=== PATIENT | male | born 1935 | race American Indian/Alaskan Native ===

== ENCOUNTER 2018-06-02 09:38 | Inpatient (IN) | payer MEDICARE ==
[2018-06-02 09:38] VITALS: BMI 27.4
--- NOTE | 2018-06-02 13:01 | C.PDOC ---
History Of Present Illness 82 years old male with PMHx of HTN and diabetes presents to ED for complaints of right lower leg pain that began few days ago. Patient states ability to walk is limited secondary to pain. Patient also reports he is not compliant with his medications. Patient states he has uncontrolled HTN and Diabetes which he cannot control with medication. Denies trauma, injuries, or any other complaints. Time Seen by Provider: 06/02/18 09:54 Chief Complaint (Nursing): Lower Extremity Problem/Injury History Per: Patient History/Exam Limitations: no limitations Onset/Duration Of Symptoms: Hrs Current Symptoms Are (Timing): Still Present Recent travel outside of the [place]: No Past Medical History Reviewed: Historical Data, Nursing Documentation, Vital Signs Vital Signs: Last Vital Signs Temp 97.9 F 06/02/18 09:44 Pulse 81 06/02/18 10:42 Resp 18 06/02/18 10:42 BP 205/68 H 06/02/18 10:42 Pulse Ox 100 06/02/18 10:42 - Medical History PMH: CVA, Diabetes, HTN, Hypercholesterolemia Surgical History: No Surg Hx Family History: States: Unknown Family Hx - Social History Hx Tobacco Use: No Hx Alcohol Use: Yes Hx Substance Use: No - Immunization History Hx Tetanus Toxoid Vaccination: No Hx Influenza Vaccination: No Hx Pneumococcal Vaccination: No Review Of Systems Constitutional: Negative for: Fever, Chills Gastrointestinal: Negative for: Nausea, Vomiting, Abdominal Pain, Diarrhea Musculoskeletal: Positive for: Leg Pain Skin: Negative for: Rash Neurological: Negative for: Weakness, Numbness Physical Exam - Physical Exam Appears: Well, Non-toxic, No Acute Distress Skin: Normal Color, Warm, Dry, No Rash Head: Atraumatic, Normacephalic Eye(s): bilateral: Normal Inspection, PERRL, EOMI Oral Mucosa: Moist Neck: Normal ROM, Supple Chest: Symmetrical, No Tenderness Cardiovascular: Rhythm Regular, No Murmur Respiratory: Normal Breath Sounds, No Rales, No Rhonchi, No Wheezing Gastrointestinal/Abdominal: Soft, No Tenderness Extremity: Normal ROM, No Tenderness (Leg ), Calf Tenderness, No Swelling (No leg swelling ) Extremity: Bilateral: Atraumatic, Normal Color And Temperature, Normal ROM Pulses: Left Dorsalis Pedis: Normal, Right Dorsalis Pedis: Normal Neurological/Psych: Oriented x3, Normal Speech Gait: Steady ED Course And Treatment O2 Sat by Pulse Oximetry: 100 (RA) Pulse Ox Interpretation: Normal Progress Note: Ordered Venous duplex scan. Dr. Escobedo came at bedside and accepted patient to telemtry. Disposition - Disposition Disposition: HOSPITALIZED Disposition Time: 13:50 Condition: FAIR - Clinical Impression Clinical Impression: Leg pain, Uncontrolled hypertension, Uncontrolled diabetes mellitus - PA / APPEALS EXAMINER / Resident Statement MD/DO has reviewed & agrees with the documentation as recorded. - Scribe Statement The provider has reviewed the documentation as recorded by the Scribben Ty All medical record entries made by the Andreibben were at my direction and personal ly dictated by me. I have reviewed the chart and agree that the record accurately reflects my personal performance of the history, physical exam, medical decision making, and the department course for this patient. I have also personally directed, reviewed, and agree with the discharge instructions and disposition. Decision To Admit - Pt Status Changed To: Hospital Disposition Of: Inpatient - Admit Certification Admit to Inpatient:: After my assessment, the patient will require hospitalization for at least two midnights. This is because of the severity of symptoms shown, intensity of services needed, and/or the medical risk in this patient being treated as an outpatient. - InPatient: Physician Admission Certification: I certify that this patient requires 2 or more midnights of care for the following reason:: will need more than 2 days of hospitalization - . Bed Request Type: Telemetry Patient Diagnosis: Leg pain, Uncontrolled hypertension, Uncontrolled diabetes mellitus
[2018-06-02] MEDS ORDERED: (Lantus) Insulin Glargine, Recombinant SC ONE (13:38)
[2018-06-02 14:48] LABS: BASO % 0.5 % (0.0-2.0); EOS # 0.1 K/uL (0.0-0.7); EOS % 1.2 % (0.0-4.0); HEMOGLOBIN 12.4 g/dL (12.0-18.0); LYMPH # 1.2 K/uL (1.0-4.3); LYMPH % 17.3 % (20.0-40.0); MEAN CELL VOLUME 91.4 fL (80.0-94.0); MEAN CORPUSCULAR HEMOGLOBIN 30.7 pg (27.0-31.0); MEAN CORPUSCULAR HGB CONC 33.5 g/dL (33.0-37.0); MEAN PLATELET VOLUME 9.4 fL (7.2-11.7); MONO # 0.6 K/uL (0.0-0.8); MONO % 7.9 % (0.0-10.0); NEUT # 5.1 K/uL (1.8-7.0); NEUT % 73.1 % (50.0-75.0); NRBC % 0.2 % (0.0-2.0); RBC 4.06 Mil/uL (4.40-5.90); RED CELL DISTRIBUTION WIDTH 15.1 % (11.5-14.5)
[2018-06-02 15:23] LABS: ALB/GLOB RATIO 1.1 (1.0-2.1); ALBUMIN 4.2 g/dL (3.5-5.0)
--- NOTE | 2018-06-02 15:27 | RAD ---
Date of service: 06/02/2018 HISTORY: htn COMPARISON: 07/08/2015 FINDINGS: LUNGS: No active pulmonary disease. PLEURA: No significant pleural effusion identified, no pneumothorax apparent. CARDIOVASCULAR: No aortic atherosclerotic calcification present. Normal cardiac size. No pulmonary vascular congestion. OSSEOUS STRUCTURES: No significant abnormalities. VISUALIZED UPPER ABDOMEN: Normal. OTHER FINDINGS: None. IMPRESSION: No active disease.
[2018-06-02] MEDS ORDERED: Glucagon Recombinant 1 mg Inj IM PRN (16:34)
[2018-06-02] MEDS ORDERED: Dextrose 50% SYRINGE Inj (50 ml) IV PRN (16:34)
--- NOTE | 2018-06-03 01:35 | HP ---
HISTORY OF PRESENT ILLNESS: This is an 82-year-old gentleman, came to the ER with weakness of the right lower extremity and pain and swelling in the right lower leg, started about two days ago, unable to walk. The patient has a longstanding history of hypertension, diabetes, carotid disease. He has been on multiple medications that includes at home Norvasc 10 mg one a day, benazepril 40 mg p.o. once a day, Coreg 25 mg p.o. twice a day, Plavix 75 mg one a day, baby aspirin one a day, Januvia 25 mg p.o. once a day, Levemir 50 units once a day, and Zocor 40 mg p.o. once a day. He was also on . The patient has been advised to follow up with debone processing supervisor, twisting frame changer, eye doctor; however, compliance has been poor. Care of plan was explained to the patient's son, . PAST MEDICAL HISTORY: History of TIAs, admitted in 2014 at [facility]. PAST SURGICAL HISTORY: No surgical history. PERSONAL HISTORY: Does not smoke. Does not drink. No exercise. Lives with his , . FAMILY HISTORY: Negative for premature coronary artery disease. REVIEW OF SYSTEMS: CONSTITUTIONAL: Generalized weakness is noted, but no fever and no chills. EYES: Negative for visual disturbances. Has been seen by Dr. Pickering in the past but, however, no followup. EARS: Negative for hearing loss. NECK: Negative for swollen glands. PULMONARY: Negative for cough or hemoptysis. CARDIAC: Dyspnea on exertion. No chest pains. No palpitations. No orthopnea. No edema. GASTROINTESTINAL: Negative for hematemesis or melena. Has been referred to GI, but is not done colonoscopy to my recollection. NEUROLOGIC: Denies any headaches or dizziness. Generalized weakness is noted. Unsteady gait at times. MUSCULOSKELETAL: History of joint pains, both on knees and hips. Echocardiogram done in the past had shown normal LV systolic function. PHYSICAL EXAMINATION: GENERAL: Shows elderly gentleman, in no acute distress. VITAL SIGNS: Blood pressure is 230/80, heart rate of 80, respiratory rate of 14, and temperature of 97.8. He is 5 feet 4 inches, and weight is 170 pounds. HEENT: Head is normocephalic. Eyes: No pallor, no icterus. Mouth: No exudates. Dentures are noted. PULMONARY: Clear to auscultation over the lung bases. CARDIAC: PMI is normal. S1 and S2 are normal. Permanent definite gallop. Systolic ejection murmur grade 2/6 in the mitral and aortic area. ABDOMEN: Slightly distended, but nontender. NEUROLOGIC: Awake, alert, and oriented x3. Moves all four extremities. MUSCULOSKELETAL: No edema. 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 Distal pulses are intact. LABORATORY DATA: EKGs and x-rays are not available. Venous Doppler was negative. ASSESSMENT: An 82-year-old gentleman with history of uncontrolled hypertension, previous transient ischemic attacks, is presented with generalized weakness more so on the right lower extremity with pain. No calf tenderness. Negative for deep vein thrombosis. PLAN: The plan is to admit to telemetry. Control his blood pressure. We will absorb the sugar and watch neurologically. Care of plan was explained to the patient's who is at the bedside. Rayo Escobedo MD
[2018-06-03] MEDS: (Novolog) Insulin Aspart, Recombinant 100 u/ml 10 ml vial SC SCH ×4 (07:57→21:15)
--- NOTE | 2018-06-03 11:55 | CP.PCM.PN ---
Subjective - Date & Time of Evaluation Date of Evaluation: 06/03/18 Time of Evaluation: 11:54 - Subjective Subjective: weak..labs noted.needs phy therapy Objective - Vital Signs/Intake and Output Vital Signs (last 24 hours): Temp Pulse Resp BP Pulse Ox 97.9 F 62 20 219/89 H 99 06/03/18 07:00 06/03/18 07:00 06/03/18 07:00 06/03/18 08:05 06/03/18 07:00 Intake and Output: 06/03/18 06/03/18 06:59 18:59 Intake Total 210 Output Total 350 Balance -140 - Medications Medications: Current Medications Amlodipine Besylate (Norvasc) 10 mg PO DAILY [facility] Last Admin: 06/03/18 09:23 Dose: 10 mg Aspirin (Aspirin Chewable) 81 mg PO DAILY [facility] Last Admin: 06/03/18 09:22 Dose: 81 mg Carvedilol (Coreg) 25 mg PO BID [facility] Last Admin: 06/03/18 09:25 Dose: Not Given Clopidogrel Bisulfate (Plavix) 75 mg PO DAILY [facility] Last Admin: 06/03/18 09:22 Dose: 75 mg Dextrose (Dextrose 50% Inj) 0 ml IV STAT PRN; Protocol PRN Reason: Hypoglycemia Protocol Dextrose (Glutose 15) 0 gm PO ONCE PRN; Protocol PRN Reason: Hypoglycemia Protocol Enalapril Maleate (Vasotec) 20 mg PO Q12 [facility] Last Admin: 06/03/18 09:25 Dose: Not Given Glucagon (Glucagen Diagnostic Kit) 0 mg IM STAT PRN; Protocol PRN Reason: Hypoglycemia Protocol Heparin Sodium (Porcine) (Heparin) 5,000 units SC BID [facility] Last Admin: 06/03/18 09:22 Dose: 5,000 units Hydralazine HCl (Apresoline) 25 mg PO TID [facility] Dextrose (Dextrose 5% In Water 1000 Ml) 1,000 mls @ 0 mls/hr IV .Q0M PRN; Protocol PRN Reason: Hypoglycemia Protocol Insulin Aspart (Novolog) 0 unit SC ACHS [facility]; Protocol Last Admin: 06/03/18 07:57 Dose: Not Given Rosuvastatin Calcium (Crestor) 10 mg PO HS [facility] - Labs Labs: 06/02/18 13:52 06/02/18 15:10 - Constitutional Appears: No Acute Distress, Chronically Ill - Head Exam Head Exam: NORMOCEPHALIC - Eye Exam Eye Exam: Normal appearance - Neck Exam Neck Exam: Normal Inspection - Respiratory Exam Respiratory Exam: Clear to Ausculation Bilateral - Cardiovascular Exam Cardiovascular Exam: REGULAR RHYTHM - GI/Abdominal Exam GI & Abdominal Exam: Soft - Extremities Exam Extremities Exam: absent: Pedal Edema - Neurological Exam Neurological Exam: Alert, Oriented x3 Assessment and Plan - Assessment and Plan (Free Text) Plan: uncontrol bp.dm,neuropathy?
--- NOTE | 2018-06-03 12:58 | VASCLAB ---
Date of service: 06/02/2018 PROCEDURE: Right Lower Extremity Venous Duplex Exam. HISTORY: pain PRIORS: None. TECHNIQUE: Right common femoral, femoral, popliteal and posterior tibial, peroneal and great saphenous veins were evaluated. Flow was assessed with color Doppler, compressibility, assessment of phasic flow and augmentation response. Report prepared by BRADEN Samson, RVT FINDINGS: RIGHT: 1. Common Femoral Vein: 1.1. Compressibility - Fully compressible: Thrombus - None: Flow - Phasic: Augmentation -Normal: Reflux - None. 2. Femoral Vein: 2.1. Compressibility - Fully compressible: Thrombus - None: Flow - Phasic: Augmentation -Normal: Reflux - None. 3. Popliteal Vein: 3.1. Compressibility - Fully compressible: Thrombus - None: Flow - Phasic: Augmentation -Normal: Reflux - None. 4. Posterior Tibial Vein: 4.1. Compressibility - Fully compressible: Thrombus - None: Flow - Phasic: Augmentation -Normal: Reflux - None. 5. Peroneal Vein: 5.1. Compressibility - Fully compressible: Thrombus - None: Flow - Phasic: Augmentation -Normal: Reflux - None. 6. Great Saphenous Vein: 6.1. Compressibility - Fully compressible: Thrombus -None: Flow - Phasic: Augmentation - Normal: Reflux - None. OTHER FINDINGS: IMPRESSION: No evidence of deep or superficial vein thrombosis of the right lower extremity with excellent venous flow. Normal valve function noted of the right side. Normal venous flow noted in the left common femoral vein.
[2018-06-03 13:01] LABS: CALCIUM 8.8 mg/dl (8.6-10.4)
--- NOTE | 2018-06-03 18:14 | CP.PCM.CON ---
History of Present Illness - History of Present Illness History of Present Illness: pt is seen and examined, full consult is dictated #[id number] Past Patient History - Past Medical History & Family History Past Medical History?: Yes - Past Social History Smoking Status: Former Smoker - CARDIAC Hx Cardiac Disorders: Yes Hx Hypercholesterolemia: Yes Hx Hypertension: Yes - PULMONARY Hx Respiratory Disorders: No - NEUROLOGICAL Hx Neurological Disorder: Yes HX Cerebrovascular Accident: Yes (2008 w/ residual right facial droop) - HEENT Hx HEENT Problems: Yes Hx Cataracts: Yes (SX removed) - RENAL Hx Chronic Kidney Disease: No - ENDOCRINE/METABOLIC Hx Endocrine Disorders: Yes Hx Diabetes Mellitus Type 2: Yes - HEMATOLOGICAL/ONCOLOGICAL Hx Blood Disorders: No - INTEGUMENTARY Hx Dermatological Problems: No - MUSCULOSKELETAL/RHEUMATOLOGICAL Hx Musculoskeletal Disorders: No Hx Falls: No - GASTROINTESTINAL Hx Gastrointestinal Disorders: No - GENITOURINARY/GYNECOLOGICAL Hx Genitourinary Disorders: Yes Hx Prostate Problems: Yes ("had surgery" but not sure) - PSYCHIATRIC Hx Psychophysiologic Disorder: No Hx Substance Use: No - SURGICAL HISTORY Hx Surgeries: Yes Hx Cataract Extraction: Yes Other/Comment: Prostate - ANESTHESIA Hx Anesthesia: Yes Hx Anesthesia Reactions: No Hx Malignant Hyperthermia: No Meds Allergies/Adverse Reactions: Allergies Allergy/AdvReac Type Severity Reaction Status Date / Time No Known Allergies Allergy Verified 06/02/18 09:47 - Medications Medications: Current Medications Amlodipine Besylate (Norvasc) 10 mg PO DAILY [facility] Last Admin: 06/03/18 09:23 Dose: 10 mg Aspirin (Aspirin Chewable) 81 mg PO DAILY [facility] Last Admin: 06/03/18 09:22 Dose: 81 mg Carvedilol (Coreg) 25 mg PO BID [facility] Last Admin: 06/03/18 17:14 Dose: 25 mg Clopidogrel Bisulfate (Plavix) 75 mg PO DAILY [facility] Last Admin: 06/03/18 09:22 Dose: 75 mg Dextrose (Dextrose 50% Inj) 0 ml IV STAT PRN; Protocol PRN Reason: Hypoglycemia Protocol Dextrose (Glutose 15) 0 gm PO ONCE PRN; Protocol PRN Reason: Hypoglycemia Protocol Enalapril Maleate (Vasotec) 20 mg PO Q12 [facility] Last Admin: 06/03/18 09:25 Dose: Not Given Glucagon (Glucagen Diagnostic Kit) 0 mg IM STAT PRN; Protocol PRN Reason: Hypoglycemia Protocol Heparin Sodium (Porcine) (Heparin) 5,000 units SC BID [facility] Last Admin: 06/03/18 17:24 Dose: 5,000 units Hydralazine HCl (Apresoline) 25 mg PO TID [facility] Last Admin: 06/03/18 17:24 Dose: 25 mg Dextrose (Dextrose 5% In Water 1000 Ml) 1,000 mls @ 0 mls/hr IV .Q0M PRN; Protocol PRN Reason: Hypoglycemia Protocol Insulin Aspart (Novolog) 0 unit SC ACHS [facility]; Protocol Last Admin: 06/03/18 16:30 Dose: Not Given Rosuvastatin Calcium (Crestor) 10 mg PO HS [facility] Results - Vital Signs Recent Vital Signs: Last Vital Signs Temp 97.1 F L 06/03/18 15:48 Pulse 60 06/03/18 15:48 Resp 20 06/03/18 15:48 BP 185/84 H 06/03/18 17:14 Pulse Ox 99 06/03/18 15:48 - Labs Result Diagrams: 06/02/18 13:52 06/03/18 11:17 Labs: Laboratory Results - last 24 hr 06/02/18 06/02/18 06/03/18 17:00 21:48 06:09 Sodium Potassium Chloride Carbon Dioxide Anion Gap BUN Creatinine Est GFR ( Amer) Est GFR (Non-Af Amer) POC Glucose (mg/dL) 224 H 116 H Random Glucose Calcium Urine Microalbumin > 570.0 H 06/03/18 06/03/18 06/03/18 11:17 12:24 16:23 Sodium 139 Potassium 4.4 Chloride 108 H Carbon Dioxide 24 Anion Gap 11 BUN 31 H Creatinine 1.4 Est GFR ( Amer) 58 Est GFR (Non-Af Amer) 48 POC Glucose (mg/dL) 346 H 88 Random Glucose 217 H D Calcium 8.8 Urine Microalbumin
--- NOTE | 2018-06-03 23:18 | CARD ---
APPROVED REPORT Date of service: 06/02/2018 EKG Measurement Heart [id number] <Conclusion> Normal sinus rhythm Left ventricular hypertrophy with repolarization abnormality Abnormal ECG
--- NOTE | 2018-06-04 06:14 | CON ---
DATE: 06/03/2018 RENAL CONSULTATION LOCATION: The patient is located in room 653, bed B. REQUESTED BY: Rayo Escobedo MD REASON FOR EVALUATION: Proteinuria, uncontrolled hypertension, increased BUN and creatinine. HISTORY OF PRESENT ILLNESS: Mr. Higgins is an 82-year-old elderly obese -[place] male with a past medical history significant for diabetes for about 20 years and hypertension for five to six years, who was admitted with chief complaint of pain in the right leg for one week and difficulty to ambulate. Denies any chest pain or palpitation. Denies any fever or cough. Denies any abdominal pain. Denies any nausea, vomiting, or diarrhea. Denies any urinary symptoms. Denies any swelling of the legs. Denies any trauma. PAST MEDICAL HISTORY: Significant for diabetes for more than 20 years, hypertension for five to six years, and hyperlipidemia. ALLERGIES: NO KNOWN DRUG ALLERGIES. SOCIAL HISTORY: The patient is an ex-smoker, quit about 10 years ago. Social alcohol use. No drug abuse. PERSONAL HISTORY: He is . He has six children. FAMILY HISTORY: Both parents . MEDICATIONS: His current medications include as follows: 1. Hydralazine 25 mg p.o. t.i.d. 2. Aspirin 81 mg p.o. daily. 3. Coreg 25 mg p.o. b.i.d. 4. Crestor 10 mg at bedtime. 5. Subcu heparin 5000 units b.i.d. 6. Amlodipine 10 mg daily. 7. NovoLog for sliding scale. 8. Plavix 75 mg daily. 9. Vasotec 20 mg p.o. every 12 hours. REVIEW OF SYSTEMS: Significant for pain in the right leg and uncontrolled hypertension. All other review of systems are reviewed and negative. PHYSICAL EXAMINATION: VITAL SIGNS: Blood pressure 185/84, pulse 60, respirations 20, temperature 97.1, saturation 99%. Height 5 feet 4 inches, weight is 180 pounds. GENERAL: Mr. Higgins is an 82-year-old elderly obese male, moderately built, moderately nourished, not in distress. HEENT: Pupils are normal and reactive to light and accommodation. Conjunctivae pink. Sclerae anicteric. Tongue is moist. NECK: Trachea is midline. LUNGS: Symmetric on both sides. Bilateral breath sounds present. Clear to auscultation. CARDIOVASCULAR SYSTEM: Glendo at the fifth intercostal space, midclavicular line. S1 and S2 audible. No murmur or gallop. ABDOMEN: Normal in appearance, soft, tympanitic. No guarding. No rigidity. No hepatosplenomegaly. No abdominal bruit. CENTRAL NERVOUS SYSTEM: The patient is alert, awake, oriented x3. Nonfocal neuro examination. Cranial nerves II through XII grossly intact. Sensory and motor system is within normal limits. EXTREMITIES: No cyanosis, no clubbing, no edema. Dorsalis pedis pulses are feeble. LABORATORY DATA: Include as follows: As of 06/03/2018, sodium 139, potassium 4.4, chloride 108, CO2 of 24, BUN 31, creatinine 1.4, glucose 217, calcium 8.8. Accu-Cheks are 116, 346, 88, and 208. GFR is 58 mL. Other laboratory data; urine microalbumin more than 750 mg/L. Chest x-ray as of 06/02/2018, no active disease. Duplex scan of the lower extremities, impression: No evidence of deep or superficial vein thrombosis of the right lower extremity, with excellent venous flow, normal wall function noted on the right side, normal venous flow noted in the left common femoral vein. ASSESSMENT: In summary, Mr. Higgins is an 82-year-old elderly male with a history of hypertension and diabetes, was admitted with right leg pain and difficult to ambulate and also found to have uncontrolled hypertension. 1. Uncontrolled hypertension, rule out renovascular disease. Continue his current medications Vasotec 20 mg every 12 hours, amlodipine 10 mg daily, Coreg 25 mg by mouth two times daily and hydralazine 25 mg by mouth three times daily. Consider to add Lasix 20 mg by mouth two times daily or hydrochlorothiazide 25 mg by mouth daily and also low-sodium diet. 2. Chronic kidney disease stage III, rule out hypertensive nephrosclerosis versus diabetic nephropathy. 3. Proteinuria, rule out diabetes mellitus nephropathy versus hypertensive nephrosclerosis versus chronic glomerulonephritis. 4. Type 2 diabetes. 5. Obesity. PLAN: We will check hepatitis B and C serology, LAVERNE, C3, C4 and ultrasound of the kidneys and urinalysis. Also, we will check urine protein to creatinine ratio. We will also check PTH intact level. We will follow with you. Thank you for allowing me to participate in your patient's care. Rosey Squires MD
[2018-06-04 07:41] LABS: SQUAMOUS EPITHIAL < 1 /hpf (0-5); URINE BILIRUBIN NEGATIVE (NEGATIVE); URINE BLOOD NEGATIVE (NEGATIVE); URINE CLARITY Clear (Clear); URINE COLOR Straw (YELLOW); URINE GLUCOSE (UA) NORMAL (Normal); URINE LEUKOCYTE ESTERASE NEG Leu/uL (Negative); URINE PROTEIN 2+ mg/dL (NEGATIVE); URINE UROBILINOGEN NORMAL mg/dL (0.2-1.0)
[2018-06-04] MEDS: (Novolog) Insulin Aspart, Recombinant 100 u/ml 10 ml vial SC SCH (07:50)
[2018-06-04 07:52] LABS: HEPATITIS B SURFACE AG Negative (NEGATIVE)
[2018-06-04 07:58] LABS: HEPATITIS A IGM NEGATIVE (NEGATIVE); HEPATITIS B CORE AB NEGATIVE (NEGATIVE)
[2018-06-04 08:09] LABS: HEPATITIS C ANTIBODY NEGATIVE (NEGATIVE)
--- NOTE | 2018-06-04 10:04 | US ---
Date of service: 06/04/2018 HISTORY: uncontrol htn COMPARISON: None. TECHNIQUE: Grayscale imaging was performed. FINDINGS: LIVER: Measures 18.6 cm. There is diffuse increased echogenicity of the liver parenchyma with coarse echotexture. No mass. No intrahepatic bile duct dilatation. GALLBLADDER: Unremarkable. No gallstones. COMMON BILE DUCT: Measures 5.0 mm. No stones. No dilatation. PANCREAS: Obscured by bowel gas. RIGHT KIDNEY: Measures 9.6cm. There is diffuse increased echogenicity with cortical atrophy. No calculus, mass, or hydronephrosis. LEFT KIDNEY: Measures 9.1cm. There is diffuse increased echogenicity with cortical atrophy. No calculus, mass, or hydronephrosis. SPLEEN: Normal in size and contour. No mass. AORTA: No aneurysmal dilatation. IVC: Unremarkable. OTHER FINDINGS: None. IMPRESSION: Mild hepatomegaly. Diffuse increased echogenicity in the liver may reflect hepatic steatosis however parenchymal infectious/ inflammatory etiologies cannot be entirely excluded. Clinical and laboratory correlation is advised. Chronic renal parenchymal disease. No cholelithiasis or biliary dilatation.
--- NOTE | 2018-06-04 10:05 | US ---
Date of service: 06/04/2018 PROCEDURE: Ultrasound of the Kidneys HISTORY: ckd, htn,dm, proteinuria, for kidney size COMPARISON: None available. TECHNIQUE: Grayscale imaging was performed. FINDINGS: RIGHT KIDNEY: Measures: 9.6 cm. There is diffuse increased echogenicity with cortical atrophy. No stone, solid mass lesion or hydronephrosis visualized. LEFT KIDNEY: Measures: 9.1 cm. There is diffuse increased echogenicity with cortical atrophy. No stone, solid mass lesion or hydronephrosis visualized. OTHER FINDINGS: None. IMPRESSION: Chronic renal parenchymal disease.
--- NOTE | 2018-06-04 18:59 | CP.PCM.PN ---
Subjective - Date & Time of Evaluation Date of Evaluation: 06/04/18 Time of Evaluation: 18:59 - Subjective Subjective: pt is seen and examined, follow up consult is dictated #[id number] Objective - Vital Signs/Intake and Output Vital Signs (last 24 hours): Temp Pulse Resp BP Pulse Ox 97.9 F 69 18 163/72 H 100 06/04/18 07:00 06/04/18 15:40 06/04/18 07:00 06/04/18 17:52 06/04/18 18:26 Intake and Output: 06/04/18 06/04/18 06:59 18:59 Intake Total 350 200 Balance 350 200 - Medications Medications: Current Medications Amlodipine Besylate (Norvasc) 10 mg PO DAILY [facility] Last Admin: 06/04/18 10:04 Dose: 10 mg Aspirin (Aspirin Chewable) 81 mg PO DAILY [facility] Last Admin: 06/04/18 10:04 Dose: 81 mg Carvedilol (Coreg) 25 mg PO BID [facility] Last Admin: 06/04/18 17:52 Dose: 25 mg Clopidogrel Bisulfate (Plavix) 75 mg PO DAILY [facility] Last Admin: 06/04/18 10:04 Dose: 75 mg Dextrose (Dextrose 50% Inj) 0 ml IV STAT PRN; Protocol PRN Reason: Hypoglycemia Protocol Dextrose (Glutose 15) 0 gm PO ONCE PRN; Protocol PRN Reason: Hypoglycemia Protocol Enalapril Maleate (Vasotec) 20 mg PO Q12 [facility] Last Admin: 06/04/18 10:55 Dose: 20 mg Glipizide (Glucotrol) 10 mg PO ACB [facility] Last Admin: 06/04/18 17:54 Dose: 10 mg Glucagon (Glucagen Diagnostic Kit) 0 mg IM STAT PRN; Protocol PRN Reason: Hypoglycemia Protocol Heparin Sodium (Porcine) (Heparin) 5,000 units SC BID [facility] Last Admin: 06/04/18 17:52 Dose: 5,000 units Hydralazine HCl (Apresoline) 25 mg PO TID [facility] Last Admin: 06/04/18 17:52 Dose: 25 mg Dextrose (Dextrose 5% In Water 1000 Ml) 1,000 mls @ 0 mls/hr IV .Q0M PRN; Prot ocol PRN Reason: Hypoglycemia Protocol Rosuvastatin Calcium (Crestor) 10 mg PO HS [facility] Last Admin: 06/03/18 21:14 Dose: 10 mg - Labs Labs: 06/02/18 13:52 06/03/18 11:17
--- NOTE | 2018-06-04 19:21 | CP.PCM.PN ---
Subjective - Date & Time of Evaluation Date of Evaluation: 06/04/18 Time of Evaluation: 19:20 - Subjective Subjective: better,bp is down Objective - Vital Signs/Intake and Output Vital Signs (last 24 hours): Temp Pulse Resp BP Pulse Ox 97.9 F 69 18 163/72 H 100 06/04/18 07:00 06/04/18 15:40 06/04/18 07:00 06/04/18 17:52 06/04/18 18:26 Intake and Output: 06/04/18 06/05/18 18:59 06:59 Intake Total 200 Balance 200 - Medications Medications: Current Medications Amlodipine Besylate (Norvasc) 10 mg PO DAILY [facility] Last Admin: 06/04/18 10:04 Dose: 10 mg Aspirin (Aspirin Chewable) 81 mg PO DAILY [facility] Last Admin: 06/04/18 10:04 Dose: 81 mg Carvedilol (Coreg) 25 mg PO BID [facility] Last Admin: 06/04/18 17:52 Dose: 25 mg Clopidogrel Bisulfate (Plavix) 75 mg PO DAILY [facility] Last Admin: 06/04/18 10:04 Dose: 75 mg Dextrose (Dextrose 50% Inj) 0 ml IV STAT PRN; Protocol PRN Reason: Hypoglycemia Protocol Dextrose (Glutose 15) 0 gm PO ONCE PRN; Protocol PRN Reason: Hypoglycemia Protocol Enalapril Maleate (Vasotec) 20 mg PO Q12 [facility] Last Admin: 06/04/18 10:55 Dose: 20 mg Glipizide (Glucotrol) 10 mg PO ACB [facility] Last Admin: 06/04/18 17:54 Dose: 10 mg Glucagon (Glucagen Diagnostic Kit) 0 mg IM STAT PRN; Protocol PRN Reason: Hypoglycemia Protocol Heparin Sodium (Porcine) (Heparin) 5,000 units SC BID [facility] Last Admin: 06/04/18 17:52 Dose: 5,000 units Hydralazine HCl (Apresoline) 25 mg PO TID [facility] Last Admin: 06/04/18 17:52 Dose: 25 mg Hydrochlorothiazide (Hydrodiuril) 25 mg PO DAILY [facility] Dextrose (Dextrose 5% In Water 1000 Ml) 1,000 mls @ 0 mls/hr IV .Q0M PRN; Pr otocol PRN Reason: Hypoglycemia Protocol Rosuvastatin Calcium (Crestor) 10 mg PO HS [facility] Last Admin: 06/03/18 21:14 Dose: 10 mg - Labs Labs: 06/02/18 13:52 06/03/18 11:17 - Constitutional Appears: No Acute Distress - Head Exam Head Exam: NORMOCEPHALIC - Eye Exam Eye Exam: Normal appearance - Neck Exam Neck Exam: Normal Inspection - Respiratory Exam Respiratory Exam: Clear to Ausculation Bilateral - Cardiovascular Exam Cardiovascular Exam: REGULAR RHYTHM, Murmur - GI/Abdominal Exam GI & Abdominal Exam: Soft - Extremities Exam Extremities Exam: absent: Pedal Edema - Neurological Exam Neurological Exam: Alert, Oriented x3 Assessment and Plan - Assessment and Plan (Free Text) Plan: htn,dm,getting better.
--- NOTE | 2018-06-05 03:52 | PN ---
DATE: 06/04/2018 FOLLOWUP RENAL CONSULTATION LOCATION: The patient is located in room 653, bed B. REQUESTED BY: Rayo Escobedo MD REASON FOR FOLLOWUP: Chronic kidney disease, proteinuria, uncontrolled hypertension. SUBJECTIVE: Mr. Higgins is an 82-year-old elderly obese male with a history of longstanding hypertension, diabetes, hyperlipidemia who was admitted with chief complaints of pain in the right leg and difficult to ambulate. The patient has also uncontrolled hypertension, increased BUN and creatinine. The patient is feeling much better today, not in acute distress. Denies any headache or dizziness. Denies any chest pain or palpitation. Denies any fever or cough. No abdominal pain. No nausea, vomiting, or diarrhea. Denies any pain in the leg today. PHYSICAL EXAMINATION: VITAL SIGNS: As follows: Blood pressure 163/72, pulse 67, respiration 20, temperature 97.4, saturation 100%. Height 5 feet 4 inches. Weight is 180 pounds. BMI 30.9. GENERAL: Mr. Higgins is an 82-year-old elderly male, well built, well nourished, not in acute distress. HEENT: Pupils are normal and reactive to light and accommodation. Conjunctivae pink. Sclerae anicteric. Tongue is moist. Trachea is midline. LUNGS: Symmetric on both sides. Bilateral breath sounds present. Clear to auscultation. CARDIOVASCULAR SYSTEM: [place] at the fifth intercostal space, midclavicular line. S1 and S2 audible. No murmur. No gallop. ABDOMEN: Normal in appearance. Soft, tympanitic. No guarding. No rigidity. No hepatosplenomegaly. CENTRAL NERVOUS SYSTEM: The patient is alert, awake, oriented x3. Nonfocal neuro examination. Cranial nerves II through XII grossly intact. Sensory and motor system is within normal limits. EXTREMITIES: No cyanosis, no clubbing, no edema. LABORATORY DATA: Include as follows. Duplex scan of the lower extremities is negative for DVT. Chest x-ray is negative. Ultrasound of the kidneys as of 06/04/2018, right kidney 9.6 cm and there is a diffuse increased echogenicity with cortical atrophy, no stone, no solid mass or hydronephrosis. Left kidney 9.1 cm. There is a diffuse increased echogenicity with cortical atrophy. Abdominal ultrasound: Liver measures 18.6 cm. There is a diffuse increased echogenicity of the liver parenchyma with coarse echotexture, no masses, no intrahepatic bile duct dilatation. Gallbladder unremarkable. No gallstones. CBD measures 5 mm, no stone or dilatation. No chronic renal parenchymal disease. No cholelithiasis or biliary dilatation. Other laboratory data: Urinalysis: Straw color, clear, pH of 6, specific gravity 1.008, protein 2+, glucose negative, ketones negative, blood negative, nitrite negative, bilirubin negative, urobilinogen negative, leukocyte esterase is negative, wbc's 2, and rbc 1. Hepatitis A IgM antibody negative. Hepatitis B surface antibody negative. Core antibody is negative. Hepatitis C antibody is negative. Accu-Cheks: 172, 233 and 273. Hemoglobin A1c is 8.3 as of 06/02/2018. ASSESSMENT AND PLAN: In summary, Mr. Higgins is an 82-year-old elderly male with hypertension, diabetes, proteinuria, increased blood urea nitrogen and creatinine who was admitted with uncontrolled hypertension. 1. Renal failure, chronic kidney disease 3, most likely secondary to hypertensive nephrosclerosis, cannot rule out underlying diabetic nephropathy or combination. 2. Uncontrolled hypertension. Blood pressure is improving. Questionable compliance with medications. Continue his current medications of Vasotec 20 mg every 12 hours, amlodipine 10 mg p.o. daily, Coreg 25 mg by mouth b.i.d., and hydralazine 25 mg by mouth t.i.d. We will also continue his other current medications of aspirin, Crestor, and glipizide. We will add hydrochlorothiazide 25 mg by mouth daily to try to keep the blood pressure around 130 to 140 and also continue low-sodium diet, low cholesterol, and 2000-calorie ADA diet. All the serology workup is within normal limits. Thank you for allowing me to participate in your patient's care. Discussed with Dr. Rayo Escobedo in rounds. Rosey Squires MD
--- NOTE | 2018-06-05 13:59 | CP.PCM.PN ---
Subjective - Date & Time of Evaluation Date of Evaluation: 06/05/18 Time of Evaluation: 13:58 - Subjective Subjective: pt is seen and examined, follow up consult is dictated #[id number] Objective - Vital Signs/Intake and Output Vital Signs (last 24 hours): Temp Pulse Resp BP Pulse Ox 97.7 F 63 18 170/72 H 99 06/05/18 07:00 06/05/18 08:00 06/05/18 07:00 06/05/18 10:35 06/05/18 07:00 Intake and Output: 06/05/18 06/05/18 06:59 18:59 Intake Total 420 Balance 420 - Medications Medications: Current Medications Amlodipine Besylate (Norvasc) 10 mg PO DAILY [facility] Last Admin: 06/05/18 09:13 Dose: 10 mg Aspirin (Aspirin Chewable) 81 mg PO DAILY [facility] Last Admin: 06/05/18 09:13 Dose: 81 mg Carvedilol (Coreg) 25 mg PO BID [facility] Last Admin: 06/05/18 09:13 Dose: 25 mg Clopidogrel Bisulfate (Plavix) 75 mg PO DAILY [facility] Last Admin: 06/05/18 09:13 Dose: 75 mg Dextrose (Dextrose 50% Inj) 0 ml IV STAT PRN; Protocol PRN Reason: Hypoglycemia Protocol Dextrose (Glutose 15) 0 gm PO ONCE PRN; Protocol PRN Reason: Hypoglycemia Protocol Enalapril Maleate (Vasotec) 20 mg PO Q12 [facility] Last Admin: 06/05/18 10:35 Dose: 20 mg Glipizide (Glucotrol) 10 mg PO ACB [facility] Last Admin: 06/05/18 13:03 Dose: 10 mg Glucagon (Glucagen Diagnostic Kit) 0 mg IM STAT PRN; Protocol PRN Reason: Hypoglycemia Protocol Heparin Sodium (Porcine) (Heparin) 5,000 units SC BID [facility] Last Admin: 06/05/18 09:12 Dose: 5,000 units Hydralazine HCl (Apresoline) 25 mg PO TID [facility] Last Admin: 06/05/18 13:02 Dose: 25 mg Hydrochlorothiazide (Hydrodiuril) 25 mg PO DAILY [facility] Last Admin: 06/05/18 09:14 Dose: 25 mg Dextrose (Dextrose 5% In Water 1000 Ml) 1,000 mls @ 0 mls/hr IV .Q0M PRN; Protocol PRN Reason: Hypoglycemia Protocol Rosuvastatin Calcium (Crestor) 10 mg PO HS [facility] Last Admin: 06/04/18 20:59 Dose: 10 mg - Labs Labs: 06/02/18 13:52 06/03/18 11:17
--- NOTE | 2018-06-05 15:10 | CP.PCM.PN ---
Subjective - Date & Time of Evaluation Date of Evaluation: 06/05/18 Time of Evaluation: 15:09 - Subjective Subjective: weak.bp still high/ Objective - Vital Signs/Intake and Output Vital Signs (last 24 hours): Temp Pulse Resp BP Pulse Ox 97.7 F 63 18 170/72 H 99 06/05/18 07:00 06/05/18 08:00 06/05/18 07:00 06/05/18 10:35 06/05/18 07:00 Intake and Output: 06/05/18 06/05/18 06:59 18:59 Intake Total 420 Balance 420 - Medications Medications: Current Medications Amlodipine Besylate (Norvasc) 10 mg PO DAILY [facility] Last Admin: 06/05/18 09:13 Dose: 10 mg Aspirin (Aspirin Chewable) 81 mg PO DAILY [facility] Last Admin: 06/05/18 09:13 Dose: 81 mg Carvedilol (Coreg) 25 mg PO BID [facility] Last Admin: 06/05/18 09:13 Dose: 25 mg Clopidogrel Bisulfate (Plavix) 75 mg PO DAILY [facility] Last Admin: 06/05/18 09:13 Dose: 75 mg Dextrose (Dextrose 50% Inj) 0 ml IV STAT PRN; Protocol PRN Reason: Hypoglycemia Protocol Dextrose (Glutose 15) 0 gm PO ONCE PRN; Protocol PRN Reason: Hypoglycemia Protocol Enalapril Maleate (Vasotec) 20 mg PO Q12 [facility] Last Admin: 06/05/18 10:35 Dose: 20 mg Glipizide (Glucotrol) 10 mg PO ACB [facility] Last Admin: 06/05/18 13:03 Dose: 10 mg Glucagon (Glucagen Diagnostic Kit) 0 mg IM STAT PRN; Protocol PRN Reason: Hypoglycemia Protocol Heparin Sodium (Porcine) (Heparin) 5,000 units SC BID [facility] Last Admin: 06/05/18 09:12 Dose: 5,000 units Hydralazine HCl (Apresoline) 50 mg PO TID [facility] Hydrochlorothiazide (Hydrodiuril) 25 mg PO DAILY [facility] Last Admin: 06/05/18 09:14 Dose: 25 mg Dextrose (Dextrose 5% In Water 1000 Ml) 1,000 mls @ 0 mls/hr IV .Q0M PRN; P rotocol PRN Reason: Hypoglycemia Protocol Rosuvastatin Calcium (Crestor) 10 mg PO HS [facility] Last Admin: 06/04/18 20:59 Dose: 10 mg - Labs Labs: 06/02/18 13:52 06/03/18 11:17 - Constitutional Appears: No Acute Distress, Chronically Ill - Head Exam Head Exam: NORMOCEPHALIC - Neck Exam Neck Exam: Normal Inspection - Respiratory Exam Respiratory Exam: Clear to Ausculation Bilateral - Cardiovascular Exam Cardiovascular Exam: REGULAR RHYTHM - GI/Abdominal Exam GI & Abdominal Exam: Soft - Extremities Exam Extremities Exam: absent: Pedal Edema - Neurological Exam Neurological Exam: Alert, Oriented x3 Assessment and Plan - Assessment and Plan (Free Text) Plan: uncontrolled dm,htn.increase hydralzine to 50 mg tid.
[2018-06-06 00:48] VITALS: RESP 20
--- NOTE | 2018-06-06 02:47 | PN ---
DATE: 06/05/2018 FOLLOWUP RENAL CONSULTATION LOCATION: The patient is located in room 653, bed B. REQUESTED BY: Rayo Escobedo MD REASON FOR FOLLOWUP: CKD III, uncontrolled hypertension, proteinuria. HISTORY OF PRESENT ILLNESS: Mr. Higgins is an 82-year-old elderly, male, obese with a past medical history significant for longstanding hypertension, diabetes, and hyperlipidemia, was admitted with the chief complaints of right leg pain, difficult to ambulate, and found to have a very high blood pressure, and also elevated serum creatinine. The patient is feeling much better, not in acute distress. Denies any headache or dizziness. Denies any chest pain or palpitation. Denies any fever or cough. No abdominal pain. No nausea, vomiting, or diarrhea, and no pain in the leg at this time. The patient is eager to go home. PHYSICAL EXAMINATION: CURRENT VITAL SIGNS: As follows, blood pressure 191/72, pulse 62, respirations about 18, and temperature is 98. Height 5 feet 4 inches, weight is 180 pounds. GENERAL: Mr. Higgins is an 82-year-old elderly male, moderately built, moderately nourished, not in distress. HEENT: Pupils normal, reactive to light and accommodation. Conjunctivae pink. Sclerae anicteric. Tongue is moist, and trachea is midline. LUNGS: Symmetric on both sides. Bilateral breath sounds present. Clear to auscultation. CARDIOVASCULAR SYSTEM: [place] at the fifth intercostal space and midclavicular line. S1, S2 audible. No murmur or gallop. ABDOMEN: Normal in appearance. Protuberant, soft, tympanic. No guarding. No rigidity. No hepatosplenomegaly. CENTRAL NERVOUS SYSTEM: The patient is alert, awake, and oriented x3. Nonfocal neuro examination. Cranial nerves II through XII grossly intact. Sensory and motor system is within normal limits. EXTREMITIES: No cyanosis, no clubbing, no edema. LABORATORY DATA: Include as follows: C3 is 126, C4 is 50, and AccuCheks 100, 212, 199, and 245. ASSESSMENT AND PLAN: In summary, Mr. Higgins is an 82-year-old elderly male with hypertension, diabetes, hyperlipidemia with chronic kidney disease, most likely with hypertension and nephrosclerosis. 1. Uncontrolled hypertension. Blood pressure is still running high. Continue current medications, enalapril 20 mg p.o. every 12 hours, amlodipine 10 mg p.o. daily, and started on hydrochlorothiazide 325 mg p.o. daily and continue, and Coreg 25 mg p.o. b.i.d., and continue hydralazine, we will increase to 50 mg p.o. every 8 hours. Low-sodium diet. If blood pressure does not control, we will add minoxidil 2.5 mg p.o. b.i.d. with hydrochlorothiazide. 2. Chronic kidney disease III, most likely secondary to hypertensive nephrosclerosis, doubt diabetic nephropathy in view of relatively small normal-sized kidneys. 3. Type 2 diabetes. 4. Hyperlipidemia. Continue Crestor. Continue glipizide 10 mg p.o. before meals b.i.d. We will follow with you. Thank you for allowing me to participate in your patient's care. Rosey Squires MD MTDD
--- NOTE | 2018-06-06 16:25 | CP.PCM.PN ---
Subjective - Date & Time of Evaluation Date of Evaluation: 06/06/18 Time of Evaluation: 16:25 - Subjective Subjective: pt is seen and examined, follow up consult is dictated #[id number] Objective - Vital Signs/Intake and Output Vital Signs (last 24 hours): Temp Pulse Resp BP Pulse Ox 97.9 F 78 20 177/72 H 98 06/06/18 07:00 06/06/18 16:00 06/06/18 07:00 06/06/18 10:07 06/06/18 07:00 Intake and Output: 06/06/18 06/06/18 06:59 18:59 Output Total 400 Balance -400 - Medications Medications: Current Medications Amlodipine Besylate (Norvasc) 10 mg PO DAILY [facility] Last Admin: 06/06/18 10:07 Dose: 10 mg Aspirin (Aspirin Chewable) 81 mg PO DAILY [facility] Last Admin: 06/06/18 10:07 Dose: 81 mg Carvedilol (Coreg) 25 mg PO BID [facility] Last Admin: 06/06/18 10:06 Dose: 25 mg Clopidogrel Bisulfate (Plavix) 75 mg PO DAILY [facility] Last Admin: 06/06/18 10:07 Dose: 75 mg Dextrose (Dextrose 50% Inj) 0 ml IV STAT PRN; Protocol PRN Reason: Hypoglycemia Protocol Dextrose (Glutose 15) 0 gm PO ONCE PRN; Protocol PRN Reason: Hypoglycemia Protocol Enalapril Maleate (Vasotec) 20 mg PO Q12 [facility] Last Admin: 06/06/18 10:07 Dose: 20 mg Glipizide (Glucotrol) 10 mg PO ACBD [facility] Last Admin: 06/06/18 07:42 Dose: 10 mg Glucagon (Glucagen Diagnostic Kit) 0 mg IM STAT PRN; Protocol PRN Reason: Hypoglycemia Protocol Heparin Sodium (Porcine) (Heparin) 5,000 units SC Q12H [facility] Last Admin: 06/06/18 10:07 Dose: 5,000 units Hydralazine HCl (Apresoline) 50 mg PO Q8H [facility] Last Admin: 06/06/18 14:00 Dose: 50 mg Hydrochlorothiazide (Hydrodiuril) 25 mg PO DAILY [facility] Last Admin: 06/06/18 10:07 Dose: 25 mg Rosuvastatin Calcium (Crestor) 10 mg PO HS [facility] Last Admin: 06/05/18 21:29 Dose: 10 mg - Labs Labs: 06/02/18 13:52 06/03/18 11:17
--- NOTE | 2018-06-07 01:20 | PN ---
DATE: 06/06/2018 FOLLOWUP RENAL CONSULTATION LOCATION: The patient is located in room 653, bed B. REQUESTED BY: Rayo Escobedo MD REASON FOR FOLLOWUP: Uncontrolled hypertension, CKD. HISTORY OF PRESENT ILLNESS: Mr. Higgins is an 82-year-old elderly male with longstanding hypertension, diabetes, chronic kidney disease who was admitted with chief complaints of right leg pain and difficult to ambulate and also very high blood pressure with elevated BUN and creatinine. The patient denies any complaints today. Denies any chest pain or palpitation. Denies any fever or cough. The patient is eager to go home, not in acute distress. PHYSICAL EXAMINATION: VITAL SIGNS: Blood pressure 184/69, pulse 60, respirations 20, temperature 97.8, saturation 100%. Height 5 feet 4 inches, weight is 153 pounds. GENERAL: Mr. Higgins is an [id number] male, moderately built, moderately nourished, not in acute distress. HEENT: Pupils are normal and reactive to light and accommodation. Conjunctivae pink. Sclerae anicteric. Tongue is moist. Trachea is midline. LUNGS: Symmetric on both sides. Bilateral breath sounds present. Clear to auscultation. CARDIOVASCULAR SYSTEM: [place] at the fifth intercostal space, midclavicular line. S1, S2 audible. No murmur or gallop. ABDOMEN: Protuberant, soft, tympanitic. No guarding. No rigidity. No hepatosplenomegaly. CENTRAL NERVOUS SYSTEM: The patient is alert, awake, and oriented x3. Nonfocal neuro examination. Cranial nerves II through XII grossly intact. Sensory and motor system is within normal limits. EXTREMITIES: No cyanosis, no clubbing, no edema. Decreased dorsalis pedis pulses in both lower extremities. CURRENT MEDICATIONS: Include as follows: Hydralazine 50 mg p.o. every 8 hours, aspirin 81 mg daily, Coreg 25 mg p.o. b.i.d., glipizide 10 mg p.o. a.c. b.i.d., subcu heparin 5000 units every 12 hours, hydrochlorothiazide 25 mg p.o. daily, amlodipine 10 mg daily, Plavix 75 mg p.o. daily, enalapril (Vasotec) 20 mg p.o. every 12 hours. LABORATORY DATA: No new labs are available. Accu-Cheks 156, 243, and 152. Duplex scan of the lower extremity as of 06/02/2018, no evidence of deep or superficial vein thrombosis on the right lower extremity, normal venous flow noted in the left common femoral vein. IMPRESSION: In summary, Mr. Higgins is an 82-year-old elderly male with hypertension and diabetes who was admitted with uncontrolled hypertension, increased blood urea nitrogen and creatinine. 1. Chronic kidney disease 3, most likely secondary to hypertensive nephrosclerosis, cannot rule out underlying diabetic nephropathy or combination. 2. Uncontrolled hypertension. Continue his current medications, hydralazine 50 mg every 8 hours, Coreg 25 mg p.o. b.i.d., Norvasc 10 mg daily, and also hydralazine 50 mg every 8 hours, hydrochlorothiazide 25 mg daily, Norvasc 10 mg daily, enalapril 20 mg p.o. every 12 hours, and low-sodium diet. 3. Type 2 diabetes. Continue glipizide. Sugars are under control. If blood pressure is below 170, the patient may be able to go home and follow up as an outpatient. If blood pressure is still not controlled, consider to add minoxidil 2.5 mg p.o. b.i.d. and titrate as needed and adjust other vasodilators Norvasc or hydralazine if minoxidil is added in the near future. Rosey Squires MD
--- NOTE | 2018-06-07 10:50 | CP.PCM.PN ---
Subjective - Date & Time of Evaluation Date of Evaluation: 06/07/18 Time of Evaluation: 10:49 - Subjective Subjective: pt is seen and examined, follow up consult is dictated #[id number] d/c hydralzine, hctz start lasix 20 mg po bid, minxidil 2.5 mg po bid Objective - Vital Signs/Intake and Output Vital Signs (last 24 hours): Temp Pulse Resp BP Pulse Ox 98.0 F 74 20 180/70 H 99 06/07/18 07:00 06/07/18 08:09 06/07/18 07:00 06/07/18 09:42 06/07/18 07:00 - Medications Medications: Current Medications Amlodipine Besylate (Norvasc) 10 mg PO DAILY [facility] Last Admin: 06/07/18 09:42 Dose: 10 mg Aspirin (Aspirin Chewable) 81 mg PO DAILY [facility] Last Admin: 06/07/18 09:42 Dose: 81 mg Carvedilol (Coreg) 25 mg PO BID [facility] Last Admin: 06/07/18 09:42 Dose: 25 mg Clopidogrel Bisulfate (Plavix) 75 mg PO DAILY [facility] Last Admin: 06/07/18 09:42 Dose: 75 mg Dextrose (Dextrose 50% Inj) 0 ml IV STAT PRN; Protocol PRN Reason: Hypoglycemia Protocol Dextrose (Glutose 15) 0 gm PO ONCE PRN; Protocol PRN Reason: Hypoglycemia Protocol Enalapril Maleate (Vasotec) 20 mg PO Q12 [facility] Last Admin: 06/07/18 09:42 Dose: 20 mg Furosemide (Lasix) 20 mg PO BID [facility] Glipizide (Glucotrol) 10 mg PO ACBD [facility] Last Admin: 06/07/18 09:42 Dose: 10 mg Glucagon (Glucagen Diagnostic Kit) 0 mg IM STAT PRN; Protocol PRN Reason: Hypoglycemia Protocol Heparin Sodium (Porcine) (Heparin) 5,000 units SC Q12H [facility] Last Admin: 06/07/18 09:42 Dose: 5,000 units Minoxidil (Minoxidil) 2.5 mg PO BID [facility] Rosuvastatin Calcium (Crestor) 10 mg PO HS [facility] Last Admin: 06/06/18 22:03 Dose: 10 mg - Labs Labs: 06/02/18 13:52 06/03/18 11:17
--- NOTE | 2018-06-07 13:35 | VASCLAB ---
Date of service: 06/04/2018 PROCEDURE: Ultrasonography renal arterial evaluation HISTORY: hypertension COMPARISON: None available. TECHNIQUE: Real-time ultrasonography evaluation of the renal arteries were performed. Comparison is made to the aorta. Report prepared by BRADEN Samson, RVT FINDINGS: AORTA: Patent. Peak systolic velocity 63 centimeters/second RIGHT RENAL ARTERY: Renal artery to aorta ratio: 4.1 * Proximal segment: Patent. Peak systolic velocity 258 centimeters/second * Mid segment: Patent. Peak systolic velocity 107 centimeters/second * Distal segment: Patent. Peak systolic velocity 104 centimeters/second Other findings: Right Kidney measures approximately 10.59 centimeters. LEFT RENAL ARTERY: Renal artery to aorta ratio: 1.7 * Proximal segment: Patent. Peak systolic velocity 102 centimeters/second * Mid segment: Patent. Peak systolic velocity 100 centimeters/second * Distal segment: Patent. Peak systolic velocity 96 centimeters/second Other findings: Left Kidney measures approximately 10.14 centimeters. 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 LEFT:No definite hemodynamically significant stenosis involving the renal arteries as visualized.
--- NOTE | 2018-06-07 14:02 | CP.PCM.PN ---
Subjective - Date & Time of Evaluation Date of Evaluation: 06/07/18 Time of Evaluation: 14:01 - Subjective Subjective: bp still uncontrolled.started on minoxidil.. Objective - Vital Signs/Intake and Output Vital Signs (last 24 hours): Temp Pulse Resp BP Pulse Ox 98.0 F 59 L 20 150/66 99 06/07/18 07:00 06/07/18 11:48 06/07/18 07:00 06/07/18 11:48 06/07/18 07:00 - Medications Medications: Current Medications Amlodipine Besylate (Norvasc) 10 mg PO DAILY [facility] Last Admin: 06/07/18 09:42 Dose: 10 mg Aspirin (Aspirin Chewable) 81 mg PO DAILY [facility] Last Admin: 06/07/18 09:42 Dose: 81 mg Carvedilol (Coreg) 25 mg PO BID [facility] Last Admin: 06/07/18 09:42 Dose: 25 mg Clopidogrel Bisulfate (Plavix) 75 mg PO DAILY [facility] Last Admin: 06/07/18 09:42 Dose: 75 mg Dextrose (Dextrose 50% Inj) 0 ml IV STAT PRN; Protocol PRN Reason: Hypoglycemia Protocol Dextrose (Glutose 15) 0 gm PO ONCE PRN; Protocol PRN Reason: Hypoglycemia Protocol Enalapril Maleate (Vasotec) 20 mg PO Q12 [facility] Last Admin: 06/07/18 09:42 Dose: 20 mg Furosemide (Lasix) 20 mg PO BID [facility] Glipizide (Glucotrol) 10 mg PO ACBD [facility] Last Admin: 06/07/18 09:42 Dose: 10 mg Glucagon (Glucagen Diagnostic Kit) 0 mg IM STAT PRN; Protocol PRN Reason: Hypoglycemia Protocol Heparin Sodium (Porcine) (Heparin) 5,000 units SC Q12H [facility] Last Admin: 06/07/18 09:42 Dose: 5,000 units Minoxidil (Minoxidil) 2.5 mg PO BID [facility] Last Admin: 06/07/18 11:45 Dose: 2.5 mg Rosuvastatin Calcium (Crestor) 10 mg PO HS [facility] Last Admin: 06/06/18 22:03 Dose: 10 mg - Labs Labs: 06/02/18 13:52 06/03/18 11:17 - Constitutional Appears: No Acute Distress - Eye Exam Eye Exam: Normal appearance - Neck Exam Neck Exam: Normal Inspection - Respiratory Exam Respiratory Exam: Clear to Ausculation Bilateral - Cardiovascular Exam Cardiovascular Exam: REGULAR RHYTHM - GI/Abdominal Exam GI & Abdominal Exam: Soft - Extremities Exam Extremities Exam: absent: Pedal Edema - Neurological Exam Neurological Exam: Oriented x3 Assessment and Plan - Assessment and Plan (Free Text) Plan: diss with nephro.will observe today with new meds.
--- NOTE | 2018-06-08 03:34 | PN ---
DATE: 06/07/2018 FOLLOWUP RENAL CONSULTATION LOCATION: The patient is located in room 653, bed B. REQUESTED BY: Rayo Escobedo MD SUBJECTIVE: Mr. Hgigins is an 82-year-old elderly male with a past medical history significant for longstanding hypertension, diabetes, chronic kidney disease who was admitted with chief complaints of right leg pain and difficult to ambulate and found to have uncontrolled hypertension and elevated BUN and creatinine. The patient is feeling much better, not in acute distress. The patient is eager to go home but still blood pressure is more than 180. Denies any headache or dizziness. Denies any chest pain or palpitation. Denies any fever or cough. No abdominal pain. No nausea, vomiting, or diarrhea. PHYSICAL EXAMINATION: VITAL SIGNS: This morning, blood pressure 180/70, pulse 59, respirations about 20, temperature 98, and saturation 99%. Height 5 feet 4 inches. Weight is 153 pounds. GENERAL: Mr. Higgins is an 82-year-old elderly male, moderately built, moderately nourished, not in acute distress. HEENT: Pupils are normal and reactive to light and accommodation. Conjunctivae pink. Sclerae anicteric. Tongue is moist and trachea is midline. LUNGS: Symmetric on both sides. Bilateral breath sounds present. Clear to auscultation. CARDIOVASCULAR SYSTEM: [place] at the fifth intercostal space, midclavicular line. S1 and S2 audile. No murmur or gallop. ABDOMEN: Normal in appearance, soft, tympanitic. No guarding. No rigidity. No hepatosplenomegaly. CENTRAL NERVOUS SYSTEM: The patient is alert, awake and oriented x3. Nonfocal neuro examination. Cranial nerves II through XII grossly intact. Sensory and motor system is grossly within normal limits. EXTREMITIES: No cyanosis, no clubbing, no edema. IMAGING DATA: Renal scan: Right kidney measures 10.59 cm and left kidney measures 10.14 cm. 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 Right renal artery proximal segment peak velocity is 258 cm, and left renal artery proximal segment peak systolic velocity is 102. ASSESSMENT AND PLAN: In summary, Mr. Higgins is an 82-year-old elderly male with hypertension, diabetes, chronic kidney disease with uncontrolled hypertension. 1. Hypertension. Blood pressure is still high. We will discontinue hydralazine, and we will discontinue hydrochlorothiazide. We will start him on minoxidil 2.5 mg by mouth twice a day and hold for systolic blood pressure less than 130 and continue Norvasc and also continue Coreg 25 mg by mouth twice a day and continue enalapril 20 mg by mouth every 12 hours. 2. Type 2 diabetes. Continue glipizide 10 mg by mouth daily. 3. Hyperlipidemia. Continue Crestor 10 mg by mouth at bedtime. Continue aspirin and Plavix and continue subcutaneous heparin 5000 units every 12 hours. Case discussed with Dr. Rayo Escobedo. We will monitor blood pressure today and if is hemodynamically stable, we will plan for discharge in the morning. Agree with Dr. Rayo Escobedo. Rosey Squires MD
--- NOTE | 2018-06-08 12:19 | CP.PCM.PN ---
Subjective - Date & Time of Evaluation Date of Evaluation: 06/08/18 Time of Evaluation: 12:19 - Subjective Subjective: pt is seen and examined, follow up consult is dictated #[id number] Objective - Vital Signs/Intake and Output Vital Signs (last 24 hours): Temp Pulse Resp BP Pulse Ox 98.1 F 62 20 171/71 H 99 06/08/18 07:00 06/08/18 07:00 06/08/18 07:00 06/08/18 09:08 06/08/18 07:00 Intake and Output: 06/08/18 06/08/18 06:59 18:59 Output Total 300 Balance -300 - Medications Medications: Current Medications Amlodipine Besylate (Norvasc) 10 mg PO DAILY [facility] Last Admin: 06/08/18 09:08 Dose: 10 mg Aspirin (Aspirin Chewable) 81 mg PO DAILY [facility] Last Admin: 06/08/18 09:08 Dose: 81 mg Carvedilol (Coreg) 25 mg PO BID [facility] Last Admin: 06/07/18 17:47 Dose: 25 mg Clopidogrel Bisulfate (Plavix) 75 mg PO DAILY [facility] Last Admin: 06/08/18 09:08 Dose: 75 mg Dextrose (Dextrose 50% Inj) 0 ml IV STAT PRN; Protocol PRN Reason: Hypoglycemia Protocol Dextrose (Glutose 15) 0 gm PO ONCE PRN; Protocol PRN Reason: Hypoglycemia Protocol Enalapril Maleate (Vasotec) 20 mg PO Q12 [facility] Last Admin: 06/07/18 21:59 Dose: 20 mg Furosemide (Lasix) 20 mg PO BID [facility] Last Admin: 06/08/18 09:08 Dose: 20 mg Glipizide (Glucotrol) 10 mg PO ACBD [facility] Last Admin: 06/08/18 06:45 Dose: 10 mg Glucagon (Glucagen Diagnostic Kit) 0 mg IM STAT PRN; Protocol PRN Reason: Hypoglycemia Protocol Heparin Sodium (Porcine) (Heparin) 5,000 units SC Q12H [facility] Last Admin: 06/08/18 09:08 Dose: 5,000 units Minoxidil (Minoxidil) 2.5 mg PO BID [facility] Last Admin: 06/08/18 09:08 Dose: 2.5 mg Rosuvastatin Calcium (Crestor) 10 mg PO HS [facility] Last Admin: 06/07/18 22:00 Dose: 10 mg - Labs Labs: 06/02/18 13:52 06/03/18 11:17
--- NOTE | 2018-06-08 19:32 | CP.PCM.PN ---
Subjective - Date & Time of Evaluation Date of Evaluation: 06/08/18 Time of Evaluation: 19:31 - Subjective Subjective: bp better. Objective - Vital Signs/Intake and Output Vital Signs (last 24 hours): Temp Pulse Resp BP Pulse Ox 98.2 F 65 20 150/70 99 06/08/18 15:00 06/08/18 16:00 06/08/18 15:00 06/08/18 18:30 06/08/18 15:00 - Medications Medications: Current Medications Amlodipine Besylate (Norvasc) 10 mg PO DAILY [facility] Last Admin: 06/08/18 09:08 Dose: 10 mg Aspirin (Aspirin Chewable) 81 mg PO DAILY [facility] Last Admin: 06/08/18 09:08 Dose: 81 mg Carvedilol (Coreg) 25 mg PO BID [facility] Last Admin: 06/08/18 17:35 Dose: Not Given Clopidogrel Bisulfate (Plavix) 75 mg PO DAILY [facility] Last Admin: 06/08/18 09:08 Dose: 75 mg Dextrose (Dextrose 50% Inj) 0 ml IV STAT PRN; Protocol PRN Reason: Hypoglycemia Protocol Dextrose (Glutose 15) 0 gm PO ONCE PRN; Protocol PRN Reason: Hypoglycemia Protocol Enalapril Maleate (Vasotec) 20 mg PO Q12 [facility] Last Admin: 06/08/18 11:00 Dose: 20 mg Furosemide (Lasix) 20 mg PO BID [facility] Last Admin: 06/08/18 18:30 Dose: 20 mg Glipizide (Glucotrol) 10 mg PO ACBD [facility] Last Admin: 06/08/18 18:30 Dose: 10 mg Glucagon (Glucagen Diagnostic Kit) 0 mg IM STAT PRN; Protocol PRN Reason: Hypoglycemia Protocol Heparin Sodium (Porcine) (Heparin) 5,000 units SC Q12H [facility] Last Admin: 06/08/18 09:08 Dose: 5,000 units Minoxidil (Minoxidil) 2.5 mg PO BID [facility] Last Admin: 06/08/18 18:30 Dose: 2.5 mg Rosuvastatin Calcium (Crestor) 10 mg PO HS [facility] Last Admin: 06/07/18 22:00 Dose: 10 mg - Labs Labs: 06/02/18 13:52 06/03/18 11:17 - Constitutional Appears: No Acute Distress, Chronically Ill - Head Exam Head Exam: NORMOCEPHALIC - Neck Exam Neck Exam: Normal Inspection - Respiratory Exam Respiratory Exam: Clear to Ausculation Bilateral - Cardiovascular Exam Cardiovascular Exam: REGULAR RHYTHM, Murmur - GI/Abdominal Exam GI & Abdominal Exam: Soft - Extremities Exam Extremities Exam: absent: Pedal Edema - Neurological Exam Neurological Exam: Alert, Oriented x3 Assessment and Plan - Assessment and Plan (Free Text) Plan: uncontroll bp.now better.d/c home in am
--- NOTE | 2018-06-09 01:21 | PN ---
DATE: 06/08/2018 FOLLOWUP RENAL CONSULTATION LOCATION: The patient is located in room 653, bed B. REQUESTED BY: Rayo Escobedo MD REASON FOR FOLLOWUP: Uncontrolled hypertension and chronic kidney disease, for further evaluation. SUBJECTIVE: Mr. Higgins is an 82-year-old elderly, obese -[place] male with a history of longstanding hypertension, diabetes and hyperlipidemia, was admitted initially with chief complaints of right leg pain, difficult to ambulate and found to have uncontrolled hypertension, blood pressure more than 220. His medications are being titrated. The patient is feeling much better today, not in acute distress, out of bed to chair. No chest pain, no palpitation, no fever, no cough, no abdominal pain. No nausea, vomiting or diarrhea. PHYSICAL EXAMINATION VITAL SIGNS: Blood pressure 154/73, pulse is 59, respirations 20, temperature 98.2, saturation 99%. Height 5 feet 4 inches, weight is 153 pounds. GENERAL: Mr. Higgins is an 82-year-old elderly male, moderately built, moderately nourished, not in acute distress. HEENT: Pupils are normal, reactive to light and accommodation. Conjunctivae pink. Sclerae anicteric. Tongue is moist. NECK: Trachea is midline. LUNGS: Symmetric on both sides. Bilateral breath sounds present, clear to auscultation. CARDIOVASCULAR SYSTEM: [place] at the fifth intercostal space, midclavicular line. S1 and S2 audible. No murmur, no gallop. ABDOMEN: Normal in appearance, soft, tympanitic. No guarding. No rigidity. No hepatosplenomegaly. CENTRAL NERVOUS SYSTEM: The patient is alert, awake and oriented x3. Nonfocal neuro examination. Cranial nerves II through XII grossly intact. Sensory and motor system is within normal limits. EXTREMITIES: No cyanosis, no clubbing, no edema. MEDICATIONS: His current medications include as follows: Aspirin 81 mg p.o. daily, Coreg 25 mg p.o. b.i.d., Crestor 10 mg at bedtime, Glucotrol 10 mg p.o. , subcu heparin 5000 units every 12 hours, Lasix 20 mg p.o. b.i.d., minoxidil 2.5 mg p.o. b.i.d., Norvasc 10 mg daily, Plavix 75 mg daily, Vasotec 20 mg p.o. every 12 hours. LABORATORY DATA: No new labs are available. Accu-Cheks 109, 248 and 214. ASSESSMENT AND PLAN: In summary, Mr. Higgins is an 82-year-old elderly male with hypertension, diabetes and hyperlipidemia, was admitted with right leg pain and uncontrolled hypertension. 1. Hypertension. Blood pressure is improving with current medications. Continue lisinopril, amlodipine, Coreg and also minoxidil and Lasix. 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 cannot control with medication, the patient may need interventional radiology evaluation for possible stenting. 2. Chronic kidney disease. Renal function is stable. No new labs. We will request BMP and CBC in a.m. 3. Type 2 diabetes. Sugars are under control. Continue his current medication, glipizide 10 mg p.o. daily. We will follow with you. Thank you for allowing me to participate in your patient's care. Rosey Squires MD
[2018-06-09 07:17] LABS: HEMOGLOBIN 11.5 g/dL (12.0-18.0); MEAN CELL VOLUME 90.5 fL (80.0-94.0); MEAN CORPUSCULAR HEMOGLOBIN 30.5 pg (27.0-31.0); MEAN CORPUSCULAR HGB CONC 33.7 g/dL (33.0-37.0); MEAN PLATELET VOLUME 9.5 fL (7.2-11.7); RBC 3.77 Mil/uL (4.40-5.90); RED CELL DISTRIBUTION WIDTH 14.7 % (11.5-14.5); WHITE BLOOD COUNT 5.1 K/uL (4.8-10.8)
[2018-06-09 07:26] LABS: CALCIUM 8.5 mg/dl (8.6-10.4)
[2018-06-09] MEDS ORDERED: Aluminum Hydroxide/Magnesium Hydroxide Susp (30 mL) PO ONE (11:15)
[2018-06-09] MEDS ORDERED: Pantoprazole 40 mg EC Tab PO ONE (11:15)
--- NOTE | 2018-06-09 11:51 | CP.PCM.PN ---
Subjective - Date & Time of Evaluation Date of Evaluation: 06/09/18 Time of Evaluation: 11:50 - Subjective Subjective: pt is seen and examined, follow up consult is dictated #[id number] d/c lasix start ivf 1/2 ns at 70 ml/hr bmp in am Objective - Vital Signs/Intake and Output Vital Signs (last 24 hours): Temp Pulse Resp BP Pulse Ox 97.9 F 64 20 150/72 98 06/09/18 07:00 06/09/18 08:09 06/09/18 07:00 06/09/18 09:26 06/09/18 07:00 Intake and Output: 06/09/18 06/09/18 06:59 18:59 Intake Total 400 Balance 400 - Medications Medications: Current Medications Amlodipine Besylate (Norvasc) 10 mg PO DAILY [facility] Last Admin: 06/09/18 09:26 Dose: 10 mg Aspirin (Aspirin Chewable) 81 mg PO DAILY [facility] Last Admin: 06/09/18 09:26 Dose: 81 mg Carvedilol (Coreg) 25 mg PO BID [facility] Last Admin: 06/09/18 09:26 Dose: 25 mg Clopidogrel Bisulfate (Plavix) 75 mg PO DAILY [facility] Last Admin: 06/09/18 09:26 Dose: 75 mg Dextrose (Dextrose 50% Inj) 0 ml IV STAT PRN; Protocol PRN Reason: Hypoglycemia Protocol Dextrose (Glutose 15) 0 gm PO ONCE PRN; Protocol PRN Reason: Hypoglycemia Protocol Enalapril Maleate (Vasotec) 20 mg PO Q12 [facility] Last Admin: 06/09/18 09:25 Dose: 20 mg Furosemide (Lasix) 20 mg PO DAILY [facility] Glipizide (Glucotrol) 10 mg PO ACBD [facility] Last Admin: 06/09/18 06:33 Dose: 10 mg Glucagon (Glucagen Diagnostic Kit) 0 mg IM STAT PRN; Protocol PRN Reason: Hypoglycemia Protocol Heparin Sodium (Porcine) (Heparin) 5,000 units SC Q12H [facility] Last Admin: 06/09/18 09:27 Dose: 5,000 units Sodium Chloride (Sodium Chloride 0.45%) 1,000 mls @ 70 mls/hr IV .[id number] [facility] Minoxidil (Minoxidil) 2.5 mg PO BID [facility] Last Admin: 06/09/18 09:26 Dose: 2.5 mg Rosuvastatin Calcium (Crestor) 10 mg PO [facility] Last Admin: 06/08/18 21:37 Dose: 10 mg - Labs Labs: 06/09/18 06:32 06/09/18 06:32
--- NOTE | 2018-06-09 12:08 | CP.PCM.PN ---
Subjective - Date & Time of Evaluation Date of Evaluation: 06/09/18 Time of Evaluation: 12:07 - Subjective Subjective: vomited this ma.cr is up to 2.4.diss with nephro. Objective - Vital Signs/Intake and Output Vital Signs (last 24 hours): Temp Pulse Resp BP Pulse Ox 97.9 F 64 20 150/72 98 06/09/18 07:00 06/09/18 08:09 06/09/18 07:00 06/09/18 09:26 06/09/18 07:00 Intake and Output: 06/09/18 06/09/18 06:59 18:59 Intake Total 400 Balance 400 - Medications Medications: Current Medications Amlodipine Besylate (Norvasc) 10 mg PO DAILY [facility] Last Admin: 06/09/18 09:26 Dose: 10 mg Aspirin (Aspirin Chewable) 81 mg PO DAILY [facility] Last Admin: 06/09/18 09:26 Dose: 81 mg Carvedilol (Coreg) 25 mg PO BID [facility] Last Admin: 06/09/18 09:26 Dose: 25 mg Clopidogrel Bisulfate (Plavix) 75 mg PO DAILY [facility] Last Admin: 06/09/18 09:26 Dose: 75 mg Dextrose (Dextrose 50% Inj) 0 ml IV STAT PRN; Protocol PRN Reason: Hypoglycemia Protocol Dextrose (Glutose 15) 0 gm PO ONCE PRN; Protocol PRN Reason: Hypoglycemia Protocol Enalapril Maleate (Vasotec) 20 mg PO Q12 [facility] Last Admin: 06/09/18 09:25 Dose: 20 mg Glipizide (Glucotrol) 10 mg PO ACBD [facility] Last Admin: 06/09/18 06:33 Dose: 10 mg Glucagon (Glucagen Diagnostic Kit) 0 mg IM STAT PRN; Protocol PRN Reason: Hypoglycemia Protocol Heparin Sodium (Porcine) (Heparin) 5,000 units SC Q12H [facility] Last Admin: 06/09/18 09:27 Dose: 5,000 units Sodium Chloride (Sodium Chloride 0.45%) 1,000 mls @ 70 mls/hr IV .[id number] [facility] Minoxidil (Minoxidil) 2.5 mg PO BID [facility] Last Admin: 06/09/18 09:26 Dose: 2.5 mg Rosuvastatin Calcium (Crestor) 10 mg PO HS [facility] Last Admin: 06/08/18 21:37 Dose: 10 mg - Labs Labs: 06/09/18 06:32 06/09/18 06:32 - Constitutional Appears: No Acute Distress, Chronically Ill - Head Exam Head Exam: NORMOCEPHALIC - Eye Exam Eye Exam: Normal appearance - Neck Exam Neck Exam: Normal Inspection - Respiratory Exam Respiratory Exam: Clear to Ausculation Bilateral - Cardiovascular Exam Cardiovascular Exam: REGULAR RHYTHM - GI/Abdominal Exam GI & Abdominal Exam: Soft - Extremities Exam Extremities Exam: absent: Pedal Edema - Neurological Exam Neurological Exam: Alert, Oriented x3 Assessment and Plan - Assessment and Plan (Free Text) Plan: will d/c lasix.iv fluids.hold the d/c.
[2018-06-09] MEDS: Sodium Chloride 0.45% 1,000 ML IV SCH (12:30)
--- NOTE | 2018-06-09 21:39 | PN ---
DATE: 06/09/2018 FOLLOWUP RENAL CONSULTATION LOCATION: The patient is located in room 653, bed B. REQUESTED BY: Rayo Escobedo MD REASON FOR FOLLOWUP: Acute renal failure, chronic kidney disease, uncontrolled hypertension. HISTORY OF PRESENT ILLNESS: Mr. Higgins is an 82-year-old elderly male with a past medical history significant for longstanding hypertension, diabetes, chronic kidney disease who was admitted with the pain in the right leg and difficult to ambulate, and subsequently, the patient was found to have uncontrolled hypertension, blood pressure more than 200, and his medication is being titrated, and now, the patient was found to have a worsening renal function, on diuretics. Blood pressure is improving now. Denies any complaints. Denies any chest pain or palpitation. Denies any fever or cough. Denies any nausea, vomiting, or diarrhea. The patient claims he is not drinking much fluids since he is in the hospital. PHYSICAL EXAMINATION: VITAL SIGNS: As of 06/09/2018, blood pressure 150/72, pulse 66, respirations 20, temperature 97.1, saturation 99%. Height 5 feet 4 inches, weight is 153 pounds. GENERAL: Mr. Higgins is an 82-year-old elderly male, moderately built, moderately nourished, not in distress. HEENT: Pupils normal and reactive to light and accommodation. Conjunctivae pink. Sclerae anicteric. Tongue is moist. Trachea is midline. LUNGS: Symmetric on both sides. Bilateral breath sounds present. Clear to auscultation. CARDIOVASCULAR SYSTEM: [place] at the fifth intercostal space, midclavicular line. S1, S2 audible. No murmur or gallop. ABDOMEN: Normal in appearance. Soft, tympanitic. No guarding. No rigidity. No hepatosplenomegaly. CENTRAL NERVOUS SYSTEM: The patient is alert, awake, and oriented x3. Nonfocal neuro examination. Cranial nerves II through XII grossly intact. Sensory and motor system is within normal limits. EXTREMITIES: No cyanosis, no clubbing, no edema. MEDICATIONS: His current medications include as follows: Aspirin 81 mg daily, Coreg 25 mg p.o. b.i.d., Crestor 10 mg at bedtime, glipizide 10 mg p.o. a.c. b.i.d., subcu heparin 5000 units every 12 hours, minoxidil 2.5 mg p.o. b.i.d., amlodipine 10 mg daily, Plavix 75 mg p.o. daily, enalapril 20 mg p.o. every 12 hours. LABORATORY DATA: His current lab data include as follows: As of 06/09/2018: WBC 5.1, hemoglobin 11.5, hematocrit is 34.1, platelets 214. Sodium 130, potassium 4.2, chloride 98, CO2 of 23, BUN 57, creatinine 1.7, glucose 167, calcium 8.5. Accu-Cheks 171 and 281. IMPRESSION: In summary, Mr. Higgins is an 82-year-old elderly male with history of hypertension, diabetes, chronic kidney disease with right proximal renal artery stenosis with worsening blood urea nitrogen and creatinine. 1. Hypertension. Blood pressure is better controlled. Continue his current medications Coreg, minoxidil, Norvasc, and lisinopril. We will discontinue Lasix for now. 2. Acute renal failure, chronic kidney disease, most likely secondary to decreased p.o. intake and diuretics. Also the patient is off diuretics since morning, and we will start IV fluids half-normal saline 70 mL/hour and repeat BMP in a.m. If renal function continued to improve, the patient can be discharged. Case discussed with Dr. Rayo Escobedo. I agree with the plan and also discussed with the patient's family as per the patient's request. Rosey Squires MD
[2018-06-10] MEDS: Sodium Chloride 0.45% 1,000 ML IV SCH (00:39)
[2018-06-10 08:40] VITALS: PULSE 65
[2018-06-10 08:43] LABS: CALCIUM 8.3 mg/dl (8.6-10.4)
--- NOTE | 2018-06-10 11:45 | CP.PCM.PN ---
Subjective - Date & Time of Evaluation Date of Evaluation: 06/10/18 Time of Evaluation: 11:44 - Subjective Subjective: pt is seen and examined, follow up consult is dictated #[id number] c/w ivf 1/2 ns at 70 ml/hr Objective - Vital Signs/Intake and Output Vital Signs (last 24 hours): Temp Pulse Resp BP Pulse Ox 98.1 F 65 20 142/66 98 06/10/18 07:39 06/10/18 07:39 06/10/18 07:39 06/10/18 10:00 06/10/18 07:39 Intake and Output: 06/10/18 06/10/18 06:59 18:59 Intake Total 940 Balance 940 - Medications Medications: Current Medications Amlodipine Besylate (Norvasc) 10 mg PO DAILY [facility] Last Admin: 06/10/18 09:59 Dose: 10 mg Aspirin (Aspirin Chewable) 81 mg PO DAILY [facility] Last Admin: 06/10/18 09:59 Dose: 81 mg Carvedilol (Coreg) 25 mg PO BID [facility] Last Admin: 06/10/18 09:59 Dose: 25 mg Clopidogrel Bisulfate (Plavix) 75 mg PO DAILY [facility] Last Admin: 06/10/18 10:06 Dose: 75 mg Dextrose (Dextrose 50% Inj) 0 ml IV STAT PRN; Protocol PRN Reason: Hypoglycemia Protocol Dextrose (Glutose 15) 0 gm PO ONCE PRN; Protocol PRN Reason: Hypoglycemia Protocol Enalapril Maleate (Vasotec) 20 mg PO Q12 [facility] Last Admin: 06/10/18 10:00 Dose: 20 mg Glipizide (Glucotrol) 10 mg PO ACBD [facility] Last Admin: 06/10/18 09:01 Dose: 10 mg Glucagon (Glucagen Diagnostic Kit) 0 mg IM STAT PRN; Protocol PRN Reason: Hypoglycemia Protocol Heparin Sodium (Porcine) (Heparin) 5,000 units SC Q12H [facility] Last Admin: 06/10/18 09:59 Dose: 5,000 units Sodium Chloride (Sodium Chloride 0.45%) 1,000 mls @ 70 mls/hr IV .[id number] [facility] Last Admin: 06/10/18 00:39 Dose: 70 mls/hr Minoxidil (Minoxidil) 2.5 mg PO BID [facility] Last Admin: 06/10/18 09:59 Dose: 2.5 mg Rosuvastatin Calcium (Crestor) 10 mg PO [facility] Last Admin: 06/09/18 21:34 Dose: 10 mg - Labs Labs: 06/09/18 06:32 06/10/18 07:22
--- NOTE | 2018-06-10 12:42 | CP.PCM.PN ---
Subjective - Date & Time of Evaluation Date of Evaluation: 06/10/18 Time of Evaluation: 12:41 - Subjective Subjective: ok.labs noted.on iv fluids Objective - Vital Signs/Intake and Output Vital Signs (last 24 hours): Temp Pulse Resp BP Pulse Ox 98.1 F 65 20 142/66 98 06/10/18 07:39 06/10/18 07:39 06/10/18 07:39 06/10/18 10:00 06/10/18 07:39 Intake and Output: 06/10/18 06/10/18 06:59 18:59 Intake Total 940 Balance 940 - Medications Medications: Current Medications Amlodipine Besylate (Norvasc) 10 mg PO DAILY [facility] Last Admin: 06/10/18 09:59 Dose: 10 mg Aspirin (Aspirin Chewable) 81 mg PO DAILY [facility] Last Admin: 06/10/18 09:59 Dose: 81 mg Carvedilol (Coreg) 25 mg PO BID [facility] Last Admin: 06/10/18 09:59 Dose: 25 mg Clopidogrel Bisulfate (Plavix) 75 mg PO DAILY [facility] Last Admin: 06/10/18 10:06 Dose: 75 mg Dextrose (Dextrose 50% Inj) 0 ml IV STAT PRN; Protocol PRN Reason: Hypoglycemia Protocol Dextrose (Glutose 15) 0 gm PO ONCE PRN; Protocol PRN Reason: Hypoglycemia Protocol Enalapril Maleate (Vasotec) 20 mg PO Q12 [facility] Last Admin: 06/10/18 10:00 Dose: 20 mg Glipizide (Glucotrol) 10 mg PO ACBD [facility] Last Admin: 06/10/18 09:01 Dose: 10 mg Glucagon (Glucagen Diagnostic Kit) 0 mg IM STAT PRN; Protocol PRN Reason: Hypoglycemia Protocol Heparin Sodium (Porcine) (Heparin) 5,000 units SC Q12H [facility] Last Admin: 06/10/18 09:59 Dose: 5,000 units Sodium Chloride (Sodium Chloride 0.45%) 1,000 mls @ 70 mls/hr IV .[id number] [facility] Last Admin: 06/10/18 00:39 Dose: 70 mls/hr Minoxidil (Minoxidil) 2.5 mg PO BID [facility] Last Admin: 06/10/18 09:59 Dose: 2.5 mg Rosuvastatin Calcium (Crestor) 10 mg PO HS [facility] Last Admin: 06/09/18 21:34 Dose: 10 mg - Labs Labs: 06/09/18 06:32 06/10/18 07:22 - Constitutional Appears: No Acute Distress, Chronically Ill - Head Exam Head Exam: NORMOCEPHALIC - Neck Exam Neck Exam: Normal Inspection - Respiratory Exam Respiratory Exam: Clear to Ausculation Bilateral - Cardiovascular Exam Cardiovascular Exam: REGULAR RHYTHM - GI/Abdominal Exam GI & Abdominal Exam: Soft - Extremities Exam Extremities Exam: absent: Pedal Edema - Neurological Exam Neurological Exam: Alert, Oriented x3 Assessment and Plan - Assessment and Plan (Free Text) Plan: acute renal failure,ct iv.diss with son.
--- NOTE | 2018-06-11 02:06 | PN ---
DATE: 06/10/2018 FOLLOWUP RENAL CONSULTATION LOCATION: The patient is located in room 653, bed B. REQUESTED BY: Rayo Escobedo MD REASON FOR FOLLOWUP: Acute renal failure, chronic kidney disease, uncontrolled hypertension. SUBJECTIVE: Mr. Higgins is an 83-year-old elderly male with a history of hypertension, diabetes, hyperlipidemia, chronic kidney disease with uncontrolled hypertension, who was admitted with right leg pain, initially difficult to ambulate. The patient was found to have a blood pressure more than 200 on admission, 205/68, and his medication is being titrated. The patient was found to have a worsening renal function in the hospital with decreased p.o. intake and started on IV fluids and serum creatinine started improving. His creatinine came down from 2.7 to 2.6 today. Denies any complaints. No chest pain, no palpitation. No fever. No cough. No abdominal pain. PHYSICAL EXAMINATION: VITAL SIGNS: This morning as follows: Blood pressure 142/66, pulse 65, respirations 20, temperature 97.3, saturation 98%. Height 5 feet 4 inches and weight is 153 pounds. GENERAL: Mr. Higgins is an 83-year-old elderly male, moderately built, moderately nourished, not in acute distress. HEENT: Pupils normal, reactive to light and accommodation. Conjunctivae pink. Sclerae anicteric. Tongue is moist. Trachea is midline. LUNGS: Symmetric on both sides. Bilateral breath sounds present. Clear to auscultation. CARDIOVASCULAR SYSTEM: Rosalia at the fifth intercostal space, midclavicular line. S1 and S2 audible. No murmur or gallop. ABDOMEN: Slightly protuberant, soft, tympanitic. No guarding. No rigidity. No hepatosplenomegaly. No suprapubic dullness. No abdominal bruit. CENTRAL NERVOUS SYSTEM: The patient is alert, awake, oriented x3. Sensory and motor system is within normal limits. EXTREMITIES: No cyanosis, no clubbing, no edema. CURRENT MEDICATIONS: Include as follows: Aspirin 81 mg daily, Coreg 25 mg p.o. b.i.d., Crestor 10 mg at bedtime, glipizide 10 mg p.o. before breakfast and dinner, subcu heparin 5000 units every 12 hours, minoxidil 2.5 mg p.o. b.i.d., amlodipine 10 mg p.o. daily, Plavix 75 mg p.o. daily, IV fluids half-normal saline at 70 mL/hour, enalapril 20 mg p.o. every 12 hours. LABORATORY DATA: Include as follows: As of 06/10/2018, sodium 132, potassium 4.5, chloride 102, CO2 of 22, BUN 61, creatinine 2.6, glucose 149, calcium 8.3. BUN: As of 06/02/2018, 37; as of 06/03/2018, 31; as of 06/09/2018, 57. His creatinine on admission on 06/02/2018 is 1.7, on 06/03/2018 is 1.4, and on 06/09/2018 is 2.7. Urine protein is 28 mg/g creatinine. Urine microalbumin is more than 750 mg/L. ASSESSMENT AND PLAN: In summary, Mr. Higgins is an 83-year-old elderly male with history of hypertension, diabetes, hyperlipidemia, chronic kidney disease with proximal right renal artery stenosis, who was admitted with uncontrolled hypertension with increased blood urea nitrogen and creatinine. 1. Acute renal failure on chronic kidney disease, most likely secondary to decreased p.o. intake and diuretics. The patient is off diuretics now, on gentle IV hydration. Serum creatinine has started improving. 2. Uncontrolled hypertension. Blood pressure is much better than admission. Continue his current medications Coreg, Norvasc, lisinopril, and minoxidil. We will try to hold lisinopril until renal function is improved. 3. Diabetes. 4. Right proximal renal vein stenosis. Repeat basic metabolic profile in a.m. We will follow with you. Thank you for allowing me to participate in your patient's care. Rosey Squires MD
[2018-06-11 02:58] VITALS: TEMP 97.4; O2SAT 97
[2018-06-11 07:12] LABS: CALCIUM 7.2 mg/dl (8.6-10.4)
[2018-06-11] MEDS: Sodium Chloride 0.45% 1,000 ML IV SCH (07:48)
--- NOTE | 2018-06-11 09:13 | CP.PCM.PN ---
Subjective - Date & Time of Evaluation Date of Evaluation: 06/11/18 Time of Evaluation: 09:12 - Subjective Subjective: pt is seen and examined, follow up consult is dictated #[id number] Objective - Vital Signs/Intake and Output Vital Signs (last 24 hours): Temp Pulse Resp BP Pulse Ox 97.4 F L 65 20 148/77 97 06/10/18 23:15 06/10/18 23:15 06/10/18 23:15 06/10/18 23:15 06/10/18 23:15 Intake and Output: 06/11/18 06/11/18 06:59 18:59 Intake Total 990 Output Total 300 Balance 690 - Medications Medications: Current Medications Amlodipine Besylate (Norvasc) 10 mg PO DAILY [facility] Last Admin: 06/10/18 09:59 Dose: 10 mg Aspirin (Aspirin Chewable) 81 mg PO DAILY [facility] Last Admin: 06/10/18 09:59 Dose: 81 mg Carvedilol (Coreg) 25 mg PO BID [facility] Last Admin: 06/10/18 17:56 Dose: 25 mg Clopidogrel Bisulfate (Plavix) 75 mg PO DAILY [facility] Last Admin: 06/10/18 10:06 Dose: 75 mg Dextrose (Dextrose 50% Inj) 0 ml IV STAT PRN; Protocol PRN Reason: Hypoglycemia Protocol Dextrose (Glutose 15) 0 gm PO ONCE PRN; Protocol PRN Reason: Hypoglycemia Protocol Enalapril Maleate (Vasotec) 20 mg PO Q12 [facility] Last Admin: 06/10/18 22:00 Dose: 20 mg Glipizide (Glucotrol) 10 mg PO ACBD [facility] Last Admin: 06/11/18 08:44 Dose: 10 mg Glucagon (Glucagen Diagnostic Kit) 0 mg IM STAT PRN; Protocol PRN Reason: Hypoglycemia Protocol Heparin Sodium (Porcine) (Heparin) 5,000 units SC Q12H [facility] Last Admin: 06/10/18 22:00 Dose: 5,000 units Sodium Chloride (Sodium Chloride 0.45%) 1,000 mls @ 70 mls/hr IV .[id number] [facility] Last Admin: 06/11/18 07:48 Dose: Not Given Minoxidil (Minoxidil) 2.5 mg PO BID [facility] Last Admin: 06/10/18 17:56 Dose: 2.5 mg Rosuvastatin Calcium (Crestor) 10 mg PO HS [facility] Last Admin: 06/10/18 21:59 Dose: 10 mg - Labs Labs: 06/09/18 06:32 06/11/18 06:36
[2018-06-11 09:25] VITALS: BP 130/62
--- NOTE | 2018-06-12 01:49 | PN ---
DATE: 06/11/2018 FOLLOWUP RENAL CONSULTATION LOCATION: The patient is located in room 653, bed B. REQUESTED BY: Rayo Escobedo MD REASON FOR RENAL CONSULTATION: Acute renal failure, chronic kidney disease, uncontrolled hypertension. SUBJECTIVE: Mr. Higgins is an 82-year-old elderly very pleasant -N[place]alese male with a past medical history significant for longstanding hypertension, diabetes, chronic kidney disease who was admitted with right leg pain and difficult to ambulate, and the patient was also found to have uncontrolled hypertension. Blood pressure more than 200. The patient's medication was titrated. The patient is feeling much better, not in acute distress. His hospital course was complicated by acute renal failure. The patient denies any chest pain or palpitation. Denies any fever or cough. No abdominal pain. No nausea, vomiting, or diarrhea. PHYSICAL EXAMINATION: VITAL SIGNS: His vital signs as follows: Blood pressure this morning 130/62, pulse 65, respirations 20, temperature 97.4, saturation 97%. Height 5 feet 4 inches, and weight is 154 pounds. GENERAL: Mr. Higgins is an 82-year-old elderly -N[place]alese male, moderately built, moderately nourished, not in acute distress. CARDIOVASCULAR SYSTEM: S1, S2 audible. No murmur or gallop. ABDOMEN: Normal in appearance, soft, tympanitic. No guarding. No rigidity. No hepatosplenomegaly. CENTRAL NERVOUS SYSTEM: The patient is alert, awake, oriented x3. Nonfocal neuro examination. Cranial nerves II through XII grossly intact. Sensory and motor system is within normal limits. EXTREMITIES: No cyanosis, no clubbing, no edema of the legs. MEDICATIONS: His current medications include as follows: Amlodipine 10 mg p.o. daily, minoxidil 2.5 mg p.o. b.i.d., glipizide 10 mg p.o. before meal b.i.d., enalapril 20 mg p.o. every 12 hours, Coreg 25 mg p.o. b.i.d., Plavix 75 mg daily, aspirin 81 mg daily, Crestor 10 mg at bedtime. LABORATORY DATA: His current lab data includes as follows: As of 06/11/2018, sodium 131, potassium 4.5, chloride 101, CO2 of 20, BUN 58, creatinine 2.1, glucose 169, calcium 7.2. Accu-Cheks are 209 and 271. ASSESSMENT AND PLAN: In summary, Mr. Higgins is an 82-year-old elderly -Nepalese male with a history of longstanding hypertension, diabetes, chronic kidney disease who was admitted with uncontrolled hypertension with acute renal failure and chronic kidney disease. 1. Uncontrolled hypertension. Blood pressure is now controlled with minoxidil, off hydralazine. Continue current medication, Norvasc 10 mg daily, Coreg 25 mg p.o. b.i.d., minoxidil 2.5 mg p.o. b.i.d., enalapril 20 mg p.o. b.i.d. 2. Acute renal failure, on chronic kidney disease, most likely secondary to multifactorial diuretics, decreased p.o. intake and angiotensin-converting enzyme inhibitors, and controlling of the blood pressure, cannot rule out normotensive ischemic acute tubular necrosis. 3. Type 2 diabetes. 4. Rule out renovascular disease of the right kidney. The patient is stable from the renal standpoint. The patient can be discharged home with current medication and follow up in the office and follow up basic metabolic panel. Thank you for allowing me to participate in your patient's care. Rosey Squires MD
--- NOTE | 2018-06-12 02:46 | DS ---
HISTORY OF PRESENT ILLNESS: An 82-year-old gentleman with history of diabetes, hypertension, and previous TIA, was brought in with a history of uncontrolled hypertension. Blood pressure was 230 in the ER. Subsequently, the patient was admitted to telemetry floor. Medications were changed. Blood pressure was finally controlled. A renal ultrasound showed chronic kidney disease. Renal scan had shown lesion in the right proximal renal artery. Nephrology consultation was obtained from Dr. Squires. Subsequently, creatinine had jumped from 1.4 to 2.7. IV hydration was given. Lasix was discontinued. The patient's today's creatinine is 2.1. Care of plan was discussed with Dr. Squires and the patient is okay to be discharged today and recheck the chem-7 in about one week's time. I will see him back in one week's time. DISCHARGE MEDICATIONS: Coreg 25 mg p.o. twice a day, Crestor 10 mg one a day, and glipizide 10 mg p.o. twice a day. He is on minoxidil 2.5 mg twice a day, Norvasc 10 mg one a day, Plavix 75 mg p.o. once a day, Vasotec 20 mg p.o. twice a day. Now, that may be, the patient will be going back to his previous benazepril 40 mg p.o. once a day. I will see him back in about one week's time. FINAL DIAGNOSES: Uncontrolled hypertension, diabetes, status post transient ischemic attack. Care of plan was also explained to the patient's son. We will observe him for the blood pressure and hold off with the renal angioplasty. PROGNOSIS: Remains poor. Rayo Escobedo MD
== END 2018-06-11 14:20 | disposition home or self-care (01) | DRG 683 ==
LOC: C.ER 09:38 → C.6T 13:52
PROVIDERS: ADMIT Internal Medicine Cardiovascular Disease; ATTEND Internal Medicine Cardiovascular Disease
DX: I12.9 Hypertensive chronic kidney disease with stage 1 through stage 4 chronic kidney disease, or unspecified chronic kidney disease (principal); I87.1 Compression of vein; N17.9 Acute kidney failure, unspecified; I70.1 Atherosclerosis of renal artery; E78.5 Hyperlipidemia, unspecified; E11.65 Type 2 diabetes mellitus with hyperglycemia; E11.22 Type 2 diabetes mellitus with diabetic chronic kidney disease; N18.3 Chronic kidney disease, stage 3 (moderate); Z79.4 Long term (current) use of insulin; Z86.73 Personal history of transient ischemic attack (TIA), and cerebral infarction without residual deficits; Z87.891 Personal history of nicotine dependence; E66.9 Obesity, unspecified